=== PATIENT | male | born 1990 | race Caucasian/White ===

== ENCOUNTER 2020-05-27 12:36 | Emergency (ER) | payer BC ==
[~2020-05-27] VITALS: Ht 165.1 cm; Wt 70.3 kg
[~2020-05-27 12:36] MED LIST: DOXYCYCLINE 10100 MG PO
[2020-05-27] MEDS ORDERED: PROZAC10 M1 PO (12:57)
[2020-05-27] MEDS ORDERED: PERCOCET 5-3251 EACH PO (15:20)
[2020-05-27 15:32] VITALS: BP 126/78
== END 2020-05-27 15:32 | disposition home or self-care (01) ==
LOC: M.ERS 12:36
DX: S62.344A Nondisplaced fracture of base of fourth metacarpal bone, right hand, initial encounter for closed fracture (principal); S63.266A Dislocation of metacarpophalangeal joint of right little finger, initial encounter; Z88.5 Allergy status to narcotic agent; Z79.899 Other long term (current) drug therapy; W22.8XXA Striking against or struck by other objects, initial encounter; Y93.89 Activity, other specified; Y92.89 Other specified places as the place of occurrence of the external cause; Y99.9 Unspecified external cause status